=== PATIENT | female | born 1970 | race Caucasian/White ===

== ENCOUNTER 2021-05-12 19:41 | Emergency (ER) | payer OTHER ==
[~2021-05-12] VITALS: Ht 170.2 cm; Wt 83.9 kg
[2021-05-12 23:22] VITALS: BP 136/82
== END 2021-05-12 23:28 | disposition home or self-care (01) ==
LOC: EDH 19:41
DX: S60.222A Contusion of left hand, initial encounter (principal); Z85.3 Personal history of malignant neoplasm of breast; X58.XXXA Exposure to other specified factors, initial encounter; Y93.89 Activity, other specified; Y92.89 Other specified places as the place of occurrence of the external cause; Y99.8 Other external cause status
CPT/HCPCS: 73130